=== PATIENT | male | born 1975 | race African-American/Black ===

== ENCOUNTER 2024-02-29 23:33 | Emergency (ER) | payer BC, SELFPAY ==
[2024-02-29 23:50] VITALS: BP 136/73; PULSE 116; RESP 22; TEMP 39.4; O2SAT 96; BMI 30.7
[2024-03-01 00:58] LABS: Influenza A - CEPHEID Flu A POSITIVE (NEGATIVE); Influenza B - CEPHEID Flu B NEGATIVE (NEGATIVE); Respiratory Syncytial Virus Negative (Negative)
[2024-03-01 01:00] LABS: COVID-19 CEPHEID 4-PLEX PCR Negative (Negative)
--- NOTE | 2024-03-01 01:30 | ED_ITS ---
HPI - URI/Sore Throat General Chief Complaint: Upper Respiratory Symptoms Stated Complaint: fever, cough Time Seen by Provider: 03/01/24 00:14 Source: patient Mode of arrival: Ambulatory History of Present Illness HPI Narrative: 48-year-old male with no reported past medical history presents with 4 days of fever, nonproductive cough, sore throat. Here with son who has similar symptoms. Taking Tylenol at home for symptoms. Denies other complaints. Patient History Social History Smoking Status: Never smoker Smoking Status: Never smoker Exam Initial Vital Signs Initial Vital Signs: Vital Signs Temperature 103.0 F H 02/29/24 23:50 Pulse Rate 116 H 02/29/24 23:50 Respiratory Rate 22 02/29/24 23:50 Blood Pressure 136/73 02/29/24 23:50 Pulse Oximetry 96 02/29/24 23:50 Oxygen Delivery Method Room Air 02/29/24 23:50 Const: Awake, alert, no acute distress, nontoxic appearing Cardiac: regular rate, regular rhythm RESP: unlabored, clear bilaterally, no wheezing Skin: Warm, Dry, intact, no rashes Neuro: AO x3, CN II-XII grossly intact, moves all extremities Course Orders Ordered: ED Orders 03/01/24 00:16 Covid-19 + FLU A/B + RSV - PCR Stat Vital Signs Vital signs: Vital Signs - 8 hr 02/29/24 23:50 03/01/24 02:08 Temperature 103.0 F H Pulse Rate 116 H 109 H Respiratory Rate 22 18 Blood Pressure 136/73 127/75 Pulse Oximetry 96 94 Oxygen Delivery Method Room Air Room Air MDM - URI/Sore Throat Differential Diagnosis Differential diagnosis: Likely upper respiratory infection, bronchitis and influenza Lab Data Labs: Lab Results 03/01/24 Range/Units 00:16 SARS-CoV-2 (PCR) Negative (Negative) Influenza A (RT-PCR) Flu a positive H (NEGATIVE) Influenza B (RT-PCR) Flu b negative (NEGATIVE) RSV (PCR) Negative (Negative) [facility] Narrative Medical decision making narrative: Nontoxic appearing patient with several days of symptoms. Patient and son both tested positive for influenza A. Due to duration of symptoms patient not candidate for Tamiflu. Counseled to take Tylenol and ibuprofen as needed for fever or discomfort. Recommended continued hydration with fluids. Supportive measures counseled at home. Patient expected to feel better in several days. Note for work provided. Discharge Plan Departure Patient Disposition: Home Clinical Impression: Influenza Instructions: DI for Influenza -- Adult Activity Restrictions/Additional Instructions: You tested positive for influenza today. Unfortunately you are not a candidate for Tamiflu since your symptoms have lasted for several days. Take Tylenol and ibuprofen as needed for fever or pain. Make sure to drink plenty of fluids. You may take [id number] cough and cold medications as needed. Stand Alone Forms: Patient Portal/API/Survey, Work Release Note
[2024-03-01 02:08] VITALS: BP 127/75; PULSE 109; RESP 18; O2SAT 94
== END 2024-03-01 02:08 | disposition home or self-care (01) ==
PROVIDERS: Emergency Provider Emergency Medicine
DX: J10.1 Influenza due to other identified influenza virus with other respiratory manifestations (principal)
CPT/HCPCS: 0241U; 99281; 99282